=== PATIENT | female | born 1965 | race Caucasian/White ===

== ENCOUNTER 2016-08-01 13:21 | Day surgery (SDC) | payer OTHER ==
[~2016-08-01] VITALS: Ht 167.6 cm; Wt 76.2 kg
[2016-08-01] VITALS (7 sets, daily range): BP systolic 121–143; BP diastolic 78–99; PULSE 76–100; RESP 16; O2SAT 96–100
[~2016-08-01 13:21] MED LIST: 0.9% Sodium Chloride 1,000 ML IV SCH; ALBU8.5H2 INHALATION; LEDI1TAB PO; MULT-666 PO; NAPR1TAB25 PO; Sodium Chloride LOK Flush 10 mL Syringe IV PRN; fentaNYL-PF 50 mCg/mL 2 mL Inj IVPUSH PRN
[2016-08-01] MEDS ORDERED: NAPR220C11 PO (13:38)
[2016-08-01] MEDS ORDERED: SOY155CA PO (13:38)
--- NOTE | 2016-08-01 15:26 | ENDO ---
[address] [address] ENDOSCOPY PROCEDURE PATIENT: NICOLAS GUEVARA : 1965 MR#: [id number] ADMIT: 08/01/2016 JOB ID: [id number] PRIMARY PROVIDER: James Espinosa MD. PROCEDURE: Colonoscopy with cold forceps polypectomy. INDICATIONS: A 50-year-old female with a family history of colon cancer in her mom, who was diagnosed in her 50s. EQUIPMENT: [employer]-H190DL. SEDATION: 7 mg Versed, 175 mcg fentanyl. COMPLICATIONS: None identified. Bowel prep excellent. COMPLICATIONS: None identified. PROCEDURE INFORMATION: After the risks and benefits were explained, written and verbal informed consent was obtained, the patient was brought into the endoscopy suite and placed into the left lateral decubitus position. Sedation was achieved as above, digital rectal examination accomplished. Mild internal/external nonbleeding, nonthrombosed hemorrhoids noted. The scope was introduced into the rectum and advanced to the cecum as identified by the appendiceal orifice and ileocecal valve. The scope was slowly withdrawn to carefully examine the mucosa for any defects or lesions. Multiple direct views were made through the dentate line for exclusion of pathology. The colon was decompressed, the scope removed from the patient who tolerated the procedure well. FINDINGS: In the rectum there was a diminutive 3-4 mm polyp that was probably hyperplastic but this was removed with cold forceps. No other significant mucosal pathology was appreciated throughout. ENDOSCOPIC DIAGNOSES: 1. Diminutive rectal polyp. 2. Hemorrhoids. RECOMMENDATIONS: 1. Await histopathology. 2. Repeat colonoscopy in five years considering family history.
--- NOTE | 2016-08-03 10:49 | PATH ---
SURGICAL PATHOLOGY Attending Physician:Otoniel Morton CASE STATUS: Signed Out PATIENT NAME: NICOLAS GUEVARA PID: [id number] : 1965 DATE COLLECTED:08/01/2016 00:00 SPECIMEN: Rectum, Biopsy CLINICAL HISTORY: 1. RECTAL POLYP X1 FINAL DIAGNOSIS: 1.RECTAL POLYP: HYPERPLASTIC POLYP. ICD10 K62.1 GROSS DESCRIPTION: The specimen is received in one formalin filled container labeled with the patient's name, sublabeled "rectal polyp" and consists of a 0.2 x 0.2 x 0.2 CM portion of tissue which is entirely submitted in one cassette. 08/02/2016 DAC MICRO DESCRIPTION: See diagnosis. ICD-9 CODES: CPT CODES: 1: 15315 Electronically Signed Out Edwin Wagoner MD [facility] Pathology [facility] [address], [place] [address] Technical component performed at [facility], [address] [place] [address] Ave[address], [place], [address]
== END 2016-08-01 23:59 | disposition home or self-care (01) ==
LOC: END 13:21
PROVIDERS: ATTEND Internal Medicine Gastroenterology
DX: Z12.11 Encounter for screening for malignant neoplasm of colon (principal); K62.1 Rectal polyp; K64.8 Other hemorrhoids; K64.4 Residual hemorrhoidal skin tags; Z80.0 Family history of malignant neoplasm of digestive organs; B18.2 Chronic viral hepatitis C; F41.9 Anxiety disorder, unspecified; F17.210 Nicotine dependence, cigarettes, uncomplicated
CPT/HCPCS: 45380; 99153; G0500; J3010; J7030